=== PATIENT | female | born 1945 | race Caucasian/White ===

== ENCOUNTER 2016-12-19 08:57 | Outpatient (CLI) | payer OTHER | END 2016-12-19 23:00 | disposition home or self-care (01) | LOC: LAB SRH 08:57 | DX: E78.00 Pure hypercholesterolemia, unspecified (principal); I25.10 Atherosclerotic heart disease of native coronary artery without angina pectoris; I10 Essential (primary) hypertension | CPT/HCPCS: 92690 ==

== ENCOUNTER 2016-12-19 09:11 | Outpatient (CLI) | payer OTHER | END 2016-12-19 23:00 | disposition home or self-care (01) | LOC: LAB SRH 09:11 | DX: D64.9 Anemia, unspecified (principal); E03.9 Hypothyroidism, unspecified; R53.1 Weakness; I10 Essential (primary) hypertension | CPT/HCPCS: 90074; 90100; 90185; 91284; 91286; 91610; 92690; 93140; 95059 ==